=== PATIENT | male | born 1960 | race Caucasian/White ===

== ENCOUNTER 2021-01-15 20:04 | Emergency (ER) | payer SELFPAY ==
[~2021-01-15] VITALS: Ht 170.2 cm; Wt 68.5 kg
[2021-01-15] MEDS ORDERED: diphenhydrAMINE HCL 50 MG/ML VIAL ONE (20:34)
[2021-01-15] MEDS ORDERED: HALOPERIDOL LACTATE INJ 5 MG/ML VIAL ONE (20:34)
--- NOTE | 2021-01-15 20:51 | NUR ---
SAMARIA FROM A 7-11. ON RESTRAINTS AND FACE GUARD. TO ER BED 15. AWAKE, AGITATED, CURSING AT STAFF. NOT IN RESP DISTRESS. BROUGHT IN FOR PT WAS YELLING, SCREAMING AND SPITTING AT PEOPLE. PT REMAINED ON 2 POINT RESTRAINT. PROVIDER WAS AT THE BEDSIDE FOR EVAL. SITTER WITHIN SIGHT. WILL CONTINUE TO MONITOR
[2021-01-15] MEDS ORDERED: HALOPERIDOL LACTATE INJ 5 MG/ML VIAL IM ONE (21:00)
[2021-01-15] MEDS ORDERED: LORAZEPAM INJ 2 MG/ML VIAL IM ONE (21:00)
[2021-01-15] MEDS ORDERED: diphenhydrAMINE HCL 50 MG/ML VIAL IM ONE (21:00)
--- NOTE | 2021-01-15 22:58 | NUR ---
PER LAB, PT REFUSED BLOOD DRAW. EXPLAINED TO PATIENT IMPORTANCE OF LAB TEST. PT STILL REFUSED. GRIZZLYMAN AWARE
--- NOTE | 2021-01-16 04:00 | NUR ---
PATIENT SLEEPING IN BED EASY TO AROUSE. DID NOT STATE NAME AT THIS TIME. VSS. PT CONNECTED TO MONITORS CARDIAC AND POX. WILL CONTINUE TO MONITOR.
--- NOTE | 2021-01-16 05:15 | NUR ---
PTS AMBULATION TESTED BUT PT IS UNABLE TO WANT WITH OUT ASSIST AND NOTED UNSTEADY ON GAIT. MD MADE AWARE.
--- NOTE | 2021-01-16 05:16 | NUR ---
OBBTAINED PT'S NAME AND GIVEN TO ADMISSION.
--- NOTE | 2021-01-16 08:00 | NUR ---
THE PATIENT IS ALERT AND ORIENTED X2. DENIES PAIN. IN ROOM AIR AND DENIES SOB. RESPIRATION REGULAR AND UNLABORED. WILL CONTINUE TO MONITOR THE PATIENT.
--- NOTE | 2021-01-16 09:25 | NUR ---
Patient discharged in stable condition. Written and verbal after care instructions given. Patient verbalizes understanding of instruction. Refused to sign discharge papers
[2021-01-16 09:32] VITALS: BP 127/71
== END 2021-01-16 09:33 | disposition home or self-care (01) ==
LOC: ER 20:07 → EDBD 20:07 → ER 01-16 09:33
DX: F10.129 Alcohol abuse with intoxication, unspecified (principal); R00.0 Tachycardia, unspecified; Z20.822 Contact with and (suspected) exposure to COVID-19
CPT/HCPCS: 87426; 96372 ×2; 99285; C9803; J1200; J1630